=== PATIENT | male | born 1960 | race Caucasian/White ===

== ENCOUNTER 2022-04-06 09:54 | Outpatient (RCR) | payer OTHER | END 2022-04-20 | LOC: PT 09:54 | PROVIDERS: ATTEND Family Medicine | DX: M54.50 Low back pain, unspecified (principal); M62.81 Muscle weakness (generalized); R26.81 Unsteadiness on feet ==

== ENCOUNTER → 2023-05-04 | Day surgery (SDC) | payer MEDICARE, BC ==
[2023-05-03 11:40] LABS: BASOPHILS # (AUTO) 0.1 (0.0-0.1); EOSINOPHILS # (AUTO) 0.2 (0.0-0.4); HEMATOCRIT 46.5 % (38.2-49.6); HEMOGLOBIN 15.6 g/dL (14.0-18.0); LYMPHOCYTES # (AUTO) 2.3 (1.0-3.2); LYMPHOCYTES % 29.8 % (18.0-39.1); MEAN CORPUSCULAR HEMOGLOBIN 30.4 pg (28-32); MEAN CORPUSCULAR HGB CONC 33.5 g/dL (31-35); MEAN CORPUSCULAR VOLUME 90.6 fL (81-99); MONOCYTES # (AUTO) 0.6 (0.2-0.8); MONOCYTES % 7.3 % (4.4-11.3); NEUTROPHILS # (AUTO) 4.6 (2.1-6.9); NEUTROPHILS % 59.6 % (38.7-80.0); PLATELET COUNT 189 x10e3/uL (140-360); RED BLOOD COUNT 5.13 x10e6/uL (4.3-5.7); RED CELL DISTRIBUTION WIDTH 12.8 % (11.7-14.4)
[~2023-05-04] MED LIST: ACETAMINOPHEN 1000 MG/100 ML 100 ML IV ONE; BENICAR20 MG PO; BUPIVACAINE HCL 0.5% INJ 30 ML VIAL INJ ONE; CEFAZOLIN SODIUM 2 GM ONE; DEXAMETHASONE SOD PHOS INJ 4 MG/ML SDV ONE; EPHEDRINE SULFATE INJ 50 MG/ML VIAL ONE; FENTANYL CITRATE/PF 100MCG/2 ML INJ ONE; KETOROLAC TROMETHAMINE 30 MG/ML VIAL ONE; LACTATED RINGER'S 1,000 ML ONE; LIDOCAINE HCL 1% LOCAL INJ 20 ML VIAL ONE; LIDOCAINE HCL 2% LOCAL INJ 5 ML SDV VIAL INJ ONE; OMEPRAZOLE40 MG PO; ONDANSETRON HCL INJ 2MG/ML 2ML 2 MG/ML VIAL ONE; POVIDONE IODINE 0.05% 0.05 % ML PO ONE; PROPOFOL IV EMULSION 10 MG/ML 20 ML VIAL ONE; SEVOFLURANE INHAL SOLN 250 ML PEN BTL ONE; SIMVASTATIN20 MG PO; VITAMIN D3125 MCG PO
[2023-05-04 10:28] VITALS: TEMP 97.8
[2023-05-04 11:30] VITALS: BP 110/51; PULSE 54; RESP 16; O2SAT 97
== END | disposition home or self-care (01) ==
LOC: OR 06:47 → EDBD 09:00
PROVIDERS: ATTEND Orthopaedic Surgery
DX: S66.323A Laceration of extensor muscle, fascia and tendon of left middle finger at wrist and hand level, initial encounter (principal); I10 Essential (primary) hypertension; E78.5 Hyperlipidemia, unspecified; K21.9 Gastro-esophageal reflux disease without esophagitis; W45.8XXA Other foreign body or object entering through skin, initial encounter; Z01.810 Encounter for preprocedural cardiovascular examination; Z01.812 Encounter for preprocedural laboratory examination; Z01.818 Encounter for other preprocedural examination; Z79.899 Other long term (current) drug therapy
CPT/HCPCS: 26412; 36415; 71046; 85025; 93005; J0131; J1100; J1885; J2001; J2405; J2704; J3010; J7121